=== PATIENT | male | born 1970 | race Two or more races ===

== ENCOUNTER 2021-10-28 18:45 | Emergency (ER) | payer BC, MEDICAID ==
[~2021-10-28] VITALS: Ht 167.6 cm; Wt 75.7 kg
--- NOTE | 2021-10-28 20:36 | NUR ---
break RN notes:pt awake, awaiting to be seen by Ed provider.
[2021-10-28 21:16] VITALS: BP 149/91
[2021-10-28] MEDS ORDERED: CIPR2.5D21 RIGHTEYE (21:35)
[2021-10-28] MEDS ORDERED: ketorolac trometh. 30mg/ml inj. IM ONE (21:40)
== END 2021-10-28 21:45 | disposition home or self-care (01) ==
LOC: ER 18:45
DX: H10.9 Unspecified conjunctivitis (principal); B96.89 Other specified bacterial agents as the cause of diseases classified elsewhere; R51.9 Headache, unspecified; Z72.89 Other problems related to lifestyle; Z79.899 Other long term (current) drug therapy
CPT/HCPCS: 99283